=== PATIENT | female | born 2000 | race African-American/Black ===

== ENCOUNTER 2019-07-07 16:37 | Emergency (ER) | payer BC, OTHER ==
[2019-07-07 16:51] VITALS: BP 150/93
--- NOTE | 2019-07-07 17:11 | ER Document Report ---
HPI - HPI Time Seen by Provider: 07/07/19 17:08 Pain Level: Denies Notes: Patient is a 19-year-old female no significant past medical history who presents for test. She had questionable urine test at home and her last menstrual cycle was early May. Denies drug allergies. No other concerns or complaints. She is able to eat and drink without difficulty. She is urinating normally and having normal bowel movements. No vaginal discharge, odor, or bleeding. Denies drug allergies. Denies any headache, fever, URI, sore throat, chest pain, palpitations, syncope, cough, shortness of breath, wheeze, dyspnea, abdominal pain, nausea/vomiting/diarrhea, urinary retention, dysuria, hematuria, or rash. - ROS Systems Reviewed and Negative: Yes All other systems reviewed and negative - REPRODUCTIVE LMP: 05/18/2019 Reproductive: REPORTS: : Past Medical History - Social History Smoking Status: Unknown if Ever Smoked Frequency of alcohol use: None Drug Abuse: None Family History: Reviewed & Not Pertinent Patient has suicidal ideation: No Patient has homicidal ideation: No Vertical Provider Document - CONSTITUTIONAL Agree With Documented VS: Yes Notes: PHYSICAL EXAMINATION: GENERAL: Well-appearing, well-nourished and in no acute distress. LUNGS: Breath sounds clear to auscultation bilaterally and equal. No wheezes rales or rhonchi. HEART: Regular rate and rhythm without murmurs, rubs, gallops. ABDOMEN: Soft, nontender, nondistended abdomen. No guarding, no rebound. Normal bowel sounds present. No CVA tenderness bilaterally. Musculoskeletal: FROM to passive/active. Strength 5+/5. Extremities: No cyanosis, clubbing, or edema b/l. Peripheral pulses 2+. Capillary refill less than 3 seconds. NEUROLOGICAL: Normal speech, normal gait. PSYCH: Normal mood, normal affect. SKIN: Warm, Dry, normal turgor, no rashes or lesions noted. - INFECTION CONTROL TRAVEL OUTSIDE OF THE [place] IN LAST 30 DAYS: No Course - Re-evaluation Re-evalutation: 07/07/19 17:50 Patient is an afebrile, well-hydrated, 19-year-old female who presents for a negative test. Vitals are acceptable. PE is otherwise unremarkable. Patient's abdomen is soft and nontender throughout. No further work-up warranted at this time. Patient is nontoxic-appearing and is tolerating p.o. without difficulty. Low suspicion/risk for acute appendicitis, bowel obstruction, acute cholecystitis, acute cholangitis, perforated diverticulitis, incarcerated hernia, pancreatitis, perforated ulcer, peritonitis, sepsis, pelvic inflammatory disease, ectopic , tubo-ovarian abscess, ovarian torsion, or other systemic emergent condition at this time. Patient is aware that her condition can change from initial presentation and she needs to monitor symptoms closely and seek medical attention if any acute changes. Conservative measures otherwise for symptoms. Recheck with your PCM/health dept in 3-5 days. Return to the ED with any worsening/concerning symptoms otherwise as reviewed in discharge. Patient is in agreement. - Vital Signs Vital signs: Temp Pulse Resp BP Pulse Ox 98.6 F 94 20 150/93 H 98 07/07/19 16:49 07/07/19 16:49 07/07/19 16:49 07/07/19 16:49 07/07/19 16:49 Discharge - Discharge Clinical Impression: Negative test Condition: Stable Disposition: HOME, SELF-CARE Additional Instructions: Maintain fluid intake Proper hygienic technique Keep the skin clean Safe sexual practices with condoms everytime Tylenol/ibuprofen as needed F/u with your PCM/Health department in 3-5 days for a recheck Return to the ED with any development of FLANNERY/fever, trouble with vision, eye redness, worsening pain, urethral discharge, urinary retention, blood in the urine, flank pain, abdominal pain, n/v, Chest Pain, shortness of breath, joint pains, trouble breathing, or any other worsening/concerning symptoms as needed otherwise. Forms: Elevated Blood Pressure Referrals: ADAM CAR MD [Primary Care Provider] - Follow up as needed HEALTH DEPT,[facility] [NO LOCAL MD] - Follow up as needed
== END 2019-07-07 18:17 | disposition home or self-care (01) ==
LOC: ER 16:37
DX: Z32.02 Encounter for pregnancy test, result negative (principal)
CPT/HCPCS: 81025; 99282